=== PATIENT | female | born 1980 | race Caucasian/White ===

== ENCOUNTER 2021-05-08 01:30 | Emergency (ER) | payer BC ==
[2021-05-08] MEDS ORDERED: Ondansetron 4 MG Tab.DIS PO ONE (01:48)
[2021-05-08] MEDS ORDERED: Acetaminophen/HYDROcodone 325-5 MG Tab PO ONE (02:14)
[2021-05-08] MEDS ORDERED: Take Home: Acetaminophen/HYDROcodone 325-5 MG, 5 Tab Pack PO ONE (02:41)
[2021-05-08] MEDS ORDERED: Take Home: Ondansetron 4 MG Tab.DIS, 5 Tab Pack PO ONE (02:42)
== END 2021-05-08 02:52 | disposition home or self-care (01) ==
LOC: VM.ED 01:30
DX: S52.501A Unspecified fracture of the lower end of right radius, initial encounter for closed fracture (principal); S52.601A Unspecified fracture of lower end of right ulna, initial encounter for closed fracture; W00.9XXA Unspecified fall due to ice and snow, initial encounter
CPT/HCPCS: 73090-RT; 73110-RT; 99283; A9270-GY; Q0162